=== PATIENT | male | born 1985 | race Caucasian/White ===

== ENCOUNTER 2019-11-25 03:43 | Emergency (ER) | payer OTHER ==
[~2019-11-25] VITALS: Ht 167.6 cm; Wt 77.1 kg
[~2019-11-25 03:43] MED LIST: CLINDAMYCIN HC300 MG PO; TRAMADOL HCL50 MG PO
== END 2019-11-25 06:20 | disposition home or self-care (01) ==
LOC: ED 03:43
DX: R10.9 Unspecified abdominal pain (principal); F17.200 Nicotine dependence, unspecified, uncomplicated
CPT/HCPCS: 74176; 80053; 81001; 85025; 96374; 96375; 99284-25; J1170; J1885; J2405

== ENCOUNTER 2020-12-13 23:10 | Emergency (ER) | payer SELFPAY ==
[~2020-12-13] VITALS: Ht 167.6 cm; Wt 74.0 kg
[2020-12-14] MEDS ORDERED: ZOFRAN4 MG PO (03:09)
[2020-12-14] MEDS ORDERED: PROTONIX40 MG PO (03:09)
== END 2020-12-14 03:24 | disposition home or self-care (01) ==
LOC: ED 23:10
DX: K29.00 Acute gastritis without bleeding (principal); F17.200 Nicotine dependence, unspecified, uncomplicated
CPT/HCPCS: 74177; 80053; 81001; 83690; 85025; 96375; 96376; 99284-25; J1170; J2405; J7030; Q9967

== ENCOUNTER 2024-06-15 18:43 | Emergency (ER) | payer OTHER ==
[~2024-06-15] VITALS: Ht 170.2 cm; Wt 70.8 kg
[~2024-06-15 18:43] MED LIST changes: +PROTONIX40 MG PO; +ZOFRAN4 MG PO
[2024-06-15] MEDS ORDERED: AMOXICILLIN/CLAVULANATE K 875 MG HOME.PACK PO ONE (21:45)
[2024-06-15] MEDS ORDERED: AMOX TR-K CLV1 EAC1 PO (21:46)
[2024-06-15 21:54] VITALS: BP 124/71
== END 2024-06-15 21:54 | disposition home or self-care (01) ==
LOC: ED 18:43
DX: L02.511 Cutaneous abscess of right hand (principal); F17.200 Nicotine dependence, unspecified, uncomplicated
CPT/HCPCS: 10060; 73140; 99283-25